=== PATIENT | male | born 1995 | race Caucasian/White ===

== ENCOUNTER 2020-12-06 19:46 | Emergency (ER) | payer OTHER, SELFPAY ==
--- NOTE | 2020-12-06 19:48 | W.ED.GENAD ---
Discharge Plan Disposition Patient Disposition: HOME Condition: Good Discharge Details Clinical Impression: Face lacerations, Laceration of lip Primary Care Provider: None,None ED Provider: Tari Manley Home Meds and New Rx's Prescriptions: New penicillin V potassium 500 mg tablet 500 mg PO QID 5 Days Qty: 20 RF: 0 Continued lysine [L-Lysine] 500 MG tablet 2 tab PO DAILY RF: 0 acyclovir 400 mg tablet 400 mg PO BID Qty: 180 RF: 2 Discharge Instructions Instructions: Penicillin V (By mouth), Facial Laceration (ED) Additional Instructions: Keep wound clean and dry. May wash with running water and then pat dry. Please perform salt water rinses 5 times daily. You may use Tylenol or ibuprofen to help with discomfort. Please apply ice pack to the lip and chin swelling. Please take the antibiotics as prescribed to help prevent infection. If you develop signs of infection such as redness, warmth, drainage, increased pain, fever/chills or other new/worsening symptoms please seek care urgently once again. Otherwise, please return in 1 week for suture removal. Tetanus updated today. Care management will reach out to you to help establish primary care. Discharge Data Discharge Date/Time-TO BE ENTERED AT DEPARTURE: 12/06/20 21:25 Medical Decision Making Patient is a pleasant 25-year-old male presenting today with chief complaint of facial trauma. He reports a prior to arrival he was having a few alcoholic beverages with friends, goofing around when he fell and struck his face against a kitchen counter. He denies any loss of consciousness. Denies any headache. Has laceration to his chin, lips and gums. He denies other injury the time of the incident. Remembers injury clearly. Unknown tetanus status. On exam, patient does not appear acutely intoxicated. Vital signs are within normal limits. He appears nontoxic. He has no evidence to suggest intracranial injury. Normal neurological exam. No hemotympanum. No palpable skull fracture. His injury seems isolated to his chin and lower jaw. No palpable fracture. Teeth align well. No loose teeth, able to break tongue depressor on both sides of his teeth. He has a 2.5 cm linear laceration to subcutaneous tissue to the chin. He does have notable swelling and ecchymosis around this area. Lower lip is quite swollen has a through and through laceration approximately 1 cm in length consistent with teeth going through this at the time of the fall. He also has a hole where the lip appears to have torn away from the lower gums. Normality on the inside of the teeth on the lingual side. No fractured teeth. No cervical spine tenderness, full range of motion. Patient I discussed wound care in depth. We discussed risk/benefits as well as extract procedural steps assisted with closure. Was understanding and wished to proceed. Clinical is a through and through laceration loosely. We did discuss the concern associated with infection and patient will be placed on antibiotics for this. Also loosely reapproximate the hole in the gumline to help prevent food or debris from catching in this area. Do not feel that any imaging is warranted at this time. I discussed this plan with the patient at length and he is in agreement. Please see procedure note. Patient tolerated this well. Patient's wounds were explored to base in a bloodless field no foreign body debris noted in any of them. Tetanus is updated today who is found to be out of date. Patient discussed wound care in depth. He will be started on antibiotics. Encourage salt water rinses at least 5 times per day. We did discuss foods that he should avoid that may cause further injury to his lip or gums. I encouraged he continue with a soft diet currently. He will return in 1 week for reevaluation and suture removal. Strict return precautions were discussed. All questions concerns were addressed and he is in plan. HPI General Mode of arrival: ambulatory. Date/Time Provider Initiated Documentation: 12/06/20 19:48. Limitations to Documentation: no limitations. Information obtained by: patient and RN notes reviewed. History of Present Illness 25 year old M presents to the emergency department with the chief complaint of facial lacerations, described as moderate, with intensity rated at 7. Quality is described as aching, and is localized to the face. Patient reports no radiation. Patient started experiencing this minute(s) and it has been constant. No relieving factors improve symptom(s), No exacerbating factors reported . Patient notes no other symptoms.; denies confusion, fever/chills, headaches, nausea/vomiting, syncope and weakness. Patient did receive the following treatments prior to arrival, none Related Data Home Medications Medication Instructions Recorded Confirmed lysine [L-Lysine] 2 tab PO DAILY 05/12/16 12/06/20 acyclovir 400 mg tablet 400 mg PO BID #180 tab-cap 03/30/19 12/06/20 penicillin V potassium 500 mg PO QID 5 Days #20 tab 12/06/20 Previous Rx's Medication Instructions Recorded acyclovir 400 mg tablet 400 mg PO BID #180 tab-cap 03/30/19 penicillin V potassium 500 mg PO QID 5 Days #20 tab 12/06/20 Allergies Allergy/AdvReac Type Severity Reaction Status Date / Time No Known Allergies Allergy Unverified 07/09/16 13:07 Review of Systems Constitutional Constitutional: Reports as per HPI, Denies chills, Denies fatigue, Denies fever(s), Denies headache(s) and Denies poor appetite Eyes Eyes: Denies blurry vision, Denies change in vision and Denies irritation ENT Ears, Nose, Mouth, and Throat: Reports as per HPI, Denies dental pain, Denies dysphagia, Denies dizziness, Denies dry mouth, Denies ear discharge, Denies otalgia, Reports facial pain, Denies headache(s), Denies hoarseness, Denies lip swelling, Denies nasal congestion, Denies odynophagia and Denies sore throat Cardiovascular Cardiovascular: Reports as per HPI and Denies chest pain Respiratory Respiratory: Reports as per HPI and Denies cough Gastrointestinal Gastrointestinal: Reports as per HPI, Denies dysphagia, Denies nausea, Denies odynophagia and Denies vomiting Integumentary/Breasts Skin/Breast: Reports as per HPI and Reports wounds Neurologic Neurologic: Reports as per HPI, Denies dizziness and Denies headache(s) Endocrine Endocrine: Denies fatigue Allergic/Immunologic Allergic/Immunologic: Denies lip swelling REPLACED BY [facility] Social History Smoking/Tobacco Use Status: Current every day Smoking risk assessment performed?: Yes Alcohol Intake: current Alcohol Intake frequency: 3 or more drinks per day Drug use: Daily Substance use type: marijuana Exam Const General: cooperative, healthy appearing, comfortable, no acute distress, well developed and well groomed Nutritional Appearance: average body habitus and well nourished Orientation: alert and awake [facility] Head: normal to inspection, no palpable skull fracture, normocephalic and atraumatic Ears: hearing grossly normal bilaterally, external ears normal and TM's normal bilaterally General nose exam: external nose normal and nares normal Face and sinus: sinuses nontender, no crepitus, ecchymosis (chin), no erythema, no fluctuance, laceration, no maxillary instability and tenderness Face images: 1. 2.5cm laceration into subQ tissue. Linear. Surrounding areas are swollen and ecchymotic. No bleeding. No FB or debris noted. 2. 1cm through and through laceration. Above hellen border. Lip is very swollen. No bleeding. No FB or debris noted. Throat: posterior oropharynx normal, tonsils normal and uvula midline Throat image: 1. area of ecchymosis and abrasion. No deep wound. Tooth is not loose, is intact. Good bite strength with no pain 2. area of lip with wound from through and through laceration. No bleeding. No FB or debris noted. Irregularly shaped. 3. Hole ripped through gum where lip meets the gum line. <1cm. No bleeding. No FB or debris noted. Eyes General: appearance normal, both eyes and all related structures Neck Neck: normal visual inspection, full ROM, no lymphadenopathy, supple and no anterior neck swelling Resp Effort & Inspection: normal respiratory effort, able to speak in complete sentences and no respiratory distress Auscultation: clear to auscultation bilaterally, no rales, no rhonchi and no wheezes Cardio Rate: regular rate Rhythm: regular rhythm Heart Sounds: S1 normal and S2 normal Skin General skin exam: ecchymosis (as above) Trauma: laceration (as above) Neuro General: patient alert and patient awake Cognition: normal cognition Speech: speech normal Gait: normal gait Psych Appearance: grossly normal and well kempt Mental Status: mental status grossly normal Speech and Movement: speech and movement normal Procedures Laceration Laceration 1: Site: face (chin) Size (cm): 2.5 Description: linear Depth: simple, single layer Local Anesthetic: Lidocaine 1% and with Epi Amount of anesthesia used (mL): 2 Pre-repair: wound explored, irrigated extensively and deep structures intact Skin layer closed with: vicryl Size (cm): 5-0 Number of sutures: 5 Technique: simple, interrupted Laceration 2: Site: lip (lower lip just above hellen border) Side (If applicable): right Size (cm): 1 Description: linear Local Anesthetic: Lidocaine 1% Amount of anesthesia used (mL): 1 Pre-repair: wound explored and irrigated extensively (through and through wound) Skin layer closed with: other (monocryl) Size (cm): 5-0 Number of sutures: 2 Technique: simple, interrupted Laceration 3: Site: lip (inner aspect of lower lip wound) Side (If applicable): right Size (cm): 1 Description: linear Local Anesthetic: Lidocaine 1% Amount of anesthesia used (mL): 1 Pre-repair: wound explored and irrigated extensively Skin layer closed with: other (monocryl) Size (cm): 5-0 Number of sutures: 1 Laceration 4: Site: other (lip/gum line) Size (cm): 1 Description: linear Depth: simple, single layer Local Anesthetic: Lidocaine 1% Amount of anesthesia used (mL): 1 Pre-repair: wound explored and irrigated extensively Skin layer closed with: other (monocryl) Size (cm): 5-0 Number of sutures: 1 Technique: simple, interrupted
[2020-12-06 19:51] VITALS: BP 139/82; PULSE 85; RESP 16; TEMP 36.8; O2SAT 100
[2020-12-06] MEDS: Penicillin V POTASSIUM 500 MG TAB 1000 MG PO (21:11)
--- NOTE | 2020-12-08 17:58 | CMPROGNOTE_ITS ---
- If Service Date Differs Date of service: 12/08/20 Time of Service: 17:58 Care Management Progress Note Don is seen in the ED on 12/06/2020 for face and lip laceration. At the request of ED provider, CM coordinates a referral to Fidelina Ibanez of [facility], on-call provider, to assist Don in obtaining a follow up appointment and in establishing care with a PCP.
== END 2020-12-06 21:25 | disposition home or self-care (01) ==
PROVIDERS: Emergency Provider Physician Assistant
DX: S01.81XA Laceration without foreign body of other part of head, initial encounter (principal); S01.511A Laceration without foreign body of lip, initial encounter; S01.512A Laceration without foreign body of oral cavity, initial encounter; W01.198A Fall on same level from slipping, tripping and stumbling with subsequent striking against other object, initial encounter
CPT/HCPCS: 12014; 90471

== ENCOUNTER 2020-12-13 11:48 | Emergency (ER) | payer OTHER, SELFPAY ==
[2020-12-13 11:52] VITALS: BP 127/63; PULSE 56; RESP 18; TEMP 36.4; O2SAT 98
--- NOTE | 2020-12-13 12:14 | ED.GENADUL_ITS ---
Discharge Plan Disposition Patient Disposition: HOME Condition: Stable Discharge Details Clinical Impression: Encounter for removal of sutures Primary Care Provider: None,None ED Provider: Joe Macdonald Home Meds and New Rx's Prescriptions: No Action lysine [L-Lysine] 500 MG tablet 2 tab PO DAILY RF: 0 acyclovir 400 mg tablet 400 mg PO BID Qty: 180 RF: 2 Discharge Instructions Instructions: Stitches Removal (ED) Discharge Data Discharge Date/Time-TO BE ENTERED AT DEPARTURE: 12/13/20 12:19 Medical Decision Making 25-year-old male presents 1 week status post laceration repair, wound healing well, here for suture removal. Intraoral wounds healing well. Patient has no concern for infection. #5 Prolene sutures removed from chin without complication. Usual customary discharge instructions were reviewed with the patient. HPI General Mode of arrival: ambulatory . Date/Time Provider Initiated Documentation: 12/13/20 11:55 . Limitations to Documentation: no limitations . Information obtained by: patient . HPI Narrative: 25-year-old male presents 1 w [place] status post facial laceration repair here for suture removal. Patient notes wound healing well. Patient notes intraoral wounds healing well. Patient has no concern for infection. Related Data Home Medications Medication Instructions Recorded Confirmed lysine [L-Lysine] 2 tab PO DAILY 05/12/16 12/13/20 acyclovir 400 mg tablet 400 mg PO BID #180 tab-cap 03/30/19 12/13/20 Previous Rx's Medication Instructions Recorded acyclovir 400 mg tablet 400 mg PO BID #180 tab-cap 03/30/19 Allergies Allergy/AdvReac Type Severity Reaction Status Date / Time No Known Allergies Allergy Unverified 12/13/20 11:55 General Stated Complaint: SutureRem RAHEEM: 4 Review of Systems Integumentary/Breasts Skin/Breast: Reports as per HPI [facility] Social History Smoking/Tobacco Use Status: Current-Occasional Tobacco Type: e-cigarettes Smoking risk assessment performed?: Yes Alcohol Intake: current Alcohol Intake frequency: 3 or more drinks per day Drug use: Occasionally Substance use type: marijuana Do you feel safe at home: Yes Do you feel safe in your relationship?: Yes Exam HENMT Other: Healed intraoral laceration Skin Trauma: laceration (Healed, sutures intact, no erythema or swelling) Course Vital Signs Vital signs: Vital Signs Temperature 36.4 C L 12/13/20 11:52 Pulse 56 L 12/13/20 11:52 Respiratory Rate 18 12/13/20 11:52 Blood Pressure 127/63 12/13/20 11:52 Pulse Oximetry 98 12/13/20 11:52 Temperature 36.4 C L 12/13/20 11:52 Temperature Source Temporal Artery Scan 12/13/20 11:52 Pulse 56 L 12/13/20 11:52 Respiratory Rate 18 12/13/20 11:52 Respiratory Effort Non-Labored 12/13/20 11:56 Blood Pressure 127/63 12/13/20 11:52 Pulse Oximetry 98 12/13/20 11:52 Pain Level 2 12/13/20 11:52
== END 2020-12-13 12:19 | disposition home or self-care (01) ==
PROVIDERS: Emergency Provider Student in an Organized Health Care Education/Training Program
DX: S01.81XD Laceration without foreign body of other part of head, subsequent encounter (principal); W18.39XD Other fall on same level, subsequent encounter; Y93.89 Activity, other specified